=== PATIENT | male | born 1950 | race Caucasian/White ===

== ENCOUNTER → 2017-02-03 | Outpatient (CLI) | payer BC, OTHER ==
[~2017-02-03] MED LIST: ACETAMINOPHEN-1 EAC1 PO; MOBIC7.5 MG PO
== END | disposition home or self-care (01) ==
LOC: RAD 15:16
DX: R91.8 Other nonspecific abnormal finding of lung field (principal); T82.84 Pain due to cardiac and vascular prosthetic devices, implants and grafts
CPT/HCPCS: 71020

== ENCOUNTER 2017-06-04 21:12 | Emergency (ER) | payer OTHER, BC ==
[~2017-06-04] VITALS: Ht 180.3 cm; Wt 68.3 kg
[2017-06-05] MEDS ORDERED: ULTRAM50 MG PO (00:07)
[2017-06-05 00:41] VITALS: BP 145/83
== END 2017-06-05 00:41 | disposition home or self-care (01) ==
LOC: EME 21:12 → EXP 21:12
DX: S16.1XXA Strain of muscle, fascia and tendon at neck level, initial encounter (principal); S39.012A Strain of muscle, fascia and tendon of lower back, initial encounter; V89.2XXA Person injured in unspecified motor-vehicle accident, traffic, initial encounter
CPT/HCPCS: 72125; 72131; 99281; 99284

== ENCOUNTER 2017-07-16 10:54 | Observation (INO) | payer BC, OTHER ==
[~2017-07-16] VITALS: Ht 180.3 cm; Wt 65.9 kg
[~2017-07-16 10:54] MED LIST changes: +ULTRAM50 MG PO
[2017-07-16 11:10] LABS: HEMATOCRIT 44.1 % (38.0-50.0); MCH 29.4 PG (29.0-34.0); MCHC 33.6 G/DL (30.0-36.0); MCV 87.5 FL (86-99); MEAN PLAT.VOLUME 9.1 uM^3 (9.0-12.4); PLATELET COUNT 211 K/uL (156-360); RBC DIS.WIDTH-CV 13.1 % (11.8-14.6); RBC DIS.WIDTH-SD 42.3 % (39-53); RED BLOOD COUNT 5.04 M/uL (4.00-5.50); WHITE BLOOD COUNT 11.6 K/uL (4.1-10.2)
[2017-07-16 11:20] LABS: CHLORIDE 104 mEq/L (99-109); POTASSIUM 4.1 mEq/L (3.7-5.4); SODIUM 138 mEq/L (136-147)
[2017-07-16 11:22] LABS: GLUCOSE 90 mg/dL (70-99)
[2017-07-16 11:23] LABS: ANION GAP 12 MEQ/L (2-14)
[2017-07-16 11:26] LABS: GFR ESTIMATE (CALCULATED) > 59 mL/min/
[2017-07-16 11:27] LABS: UREA NITROGEN (BUN) 11 mg/dL (9-23)
[2017-07-16 11:31] LABS: TROP-I INTERPRETATION NEGATIVE; TROPONIN-I < 0.01 ng/mL (0.0-0.30)
[2017-07-16] MEDS ORDERED: COZAAR100 MG PO (14:07)
[2017-07-16] MEDS ORDERED: NORVASC5 MG PO (14:08)
[2017-07-16] MEDS ORDERED: LIPITOR40 MG PO (14:08)
[2017-07-16] MEDS ORDERED: VITAMIN D PO (14:10)
[2017-07-16] MEDS ORDERED: LO-DOSE ASPIRIN81 M1 PO (14:10)
[2017-07-16] MEDS ORDERED: AFRIN,GENASAL D15 ML BOTH NARES (14:11)
[2017-07-16 18:29] VITALS: BP 112/64
[2017-07-16 20:00] VITALS: BP 136/66
[2017-07-17 00:14] VITALS: BP 126/62
[2017-07-17 00:54] LABS: TROP-I INTERPRETATION NEGATIVE; TROPONIN-I < 0.01 ng/mL (0.0-0.30)
[2017-07-17 04:00] VITALS: BP 125/74
[2017-07-17] MEDS ORDERED: AMOX TR-K CLV1 EAC4 PO (08:56)
[2017-07-17 09:19] LABS: HEMATOCRIT 45.2 % (38.0-50.0); MCH 30.5 PG (29.0-34.0); MCHC 33.6 G/DL (30.0-36.0); MCV 90.6 FL (86-99); MEAN PLAT.VOLUME 9.7 uM^3 (9.0-12.4); PLATELET COUNT 230 K/uL (156-360); RBC DIS.WIDTH-CV 13.3 % (11.8-14.6); RBC DIS.WIDTH-SD 44.6 % (39-53); RED BLOOD COUNT 4.99 M/uL (4.00-5.50); WHITE BLOOD COUNT 6.8 K/uL (4.1-10.2)
[2017-07-17 09:40] VITALS: BP 121/64
[2017-07-17 09:41] LABS: ANION GAP 8 MEQ/L (2-14); CHLORIDE 106 MEQ/L (99-109); GFR ESTIMATE (CALCULATED) > 59 mL/min/; GLUCOSE 96 mg/dL (70-99); HDL CHOLESTEROL 55 MG/DL (Desirable>=40); LDL CHOLESTEROL 77 mg/dL (Desirable<100); NON-HDL CHOLESTEROL 91 mg/dL (Desirable<160); POTASSIUM 4.4 MEQ/L (3.7-5.4); SAMPLE HEMOLYSIS CHECK 0; SAMPLE ICTERIC CHECK 0; SAMPLE LIPEMIA CHECK 0; SODIUM 141 MEQ/L (136-147); TOTAL CHOLESTEROL 146 mg/dL (Desirable<200); TRIGLYCERIDES 68 MG/DL (Normal: <150); UREA NITROGEN (BUN) 13 mg/dL (9-23)
[2017-07-17 09:54] LABS: TROP-I INTERPRETATION NEGATIVE; TROPONIN-I < 0.01 ng/mL (0.0-0.30)
[2017-07-17 11:57] VITALS: BP 119/64
== END 2017-07-17 12:11 | disposition home or self-care (01) ==
LOC: EME 10:54 → EDOF 14:29 → 5WEST 14:29 → EDOF 14:29 → ENRESERV 14:30 → 5WEST 18:03
PROVIDERS: Hospitalist
DX: I44.2 Atrioventricular block, complete (principal); I10 Essential (primary) hypertension; R07.89 Other chest pain; Z95.0 Presence of cardiac pacemaker; J20.9 Acute bronchitis, unspecified; E78.5 Hyperlipidemia, unspecified; F17.200 Nicotine dependence, unspecified, uncomplicated; Z79.82 Long term (current) use of aspirin; Z90.49 Acquired absence of other specified parts of digestive tract; Z82.49 Family history of ischemic heart disease and other diseases of the circulatory system
CPT/HCPCS: 71020; 80048; 80061; 84484; 85027; 93005; 94640; 94640 76; 99202; 99281; 99285; G0378

== ENCOUNTER 2018-06-24 17:52 | Emergency (ER) | payer BC, OTHER ==
[~2018-06-24] VITALS: Ht 180.3 cm; Wt 68.9 kg
[~2018-06-24 17:52] MED LIST changes: +AFRIN,GENASAL D15 ML BOTH NARES; +AMOX TR-K CLV1 EAC4 PO; +COZAAR100 MG PO; +LIPITOR40 MG PO; +LO-DOSE ASPIRIN81 M1 PO; +NORVASC5 MG PO; +VITAMIN D PO
[2018-06-24] MEDS ORDERED: PERCOCET 5/31 TABLET PO (19:51)
[2018-06-24 20:10] VITALS: BP 139/78
== END 2018-06-24 20:11 | disposition home or self-care (01) ==
LOC: EME 17:52
DX: M54.16 Radiculopathy, lumbar region (principal); G89.29 Other chronic pain; M54.5 Low back pain; M79.604 Pain in right leg; M79.605 Pain in left leg; R10.30 Lower abdominal pain, unspecified; I10 Essential (primary) hypertension; E78.5 Hyperlipidemia, unspecified; Z79.82 Long term (current) use of aspirin; F17.200 Nicotine dependence, unspecified, uncomplicated
CPT/HCPCS: 99281; 99283; J1885; J8540